=== PATIENT | female | born 1985 | race Caucasian/White ===

== ENCOUNTER 2022-11-11 07:30 | Emergency (ER) | payer OTHER ==
[~2022-11-11] VITALS: Ht 170.2 cm; Wt 60.0 kg
[2022-11-11 08:14] VITALS: BP 150/108
--- NOTE | 2022-11-11 08:19 | NUR ---
MD is aware of patients high blood pressure, no new orders at this time.
[2022-11-11] MEDS ORDERED: ibuprofen tablet 400 MG TABLET PO ONE (09:05)
[2022-11-11] MEDS ORDERED: acetaminophen 325mg tablet PO ONE (09:05)
== END 2022-11-11 09:41 | disposition home or self-care (01) ==
LOC: ER 07:31
DX: S13.4XXA Sprain of ligaments of cervical spine, initial encounter (principal); Z88.0 Allergy status to penicillin; V87.7XXA Person injured in collision between other specified motor vehicles (traffic), initial encounter; Y93.89 Activity, other specified; Y92.89 Other specified places as the place of occurrence of the external cause; Y99.8 Other external cause status
CPT/HCPCS: 70450; 70486; 72125; 99284

== ENCOUNTER 2022-11-15 12:06 | Emergency (ER) | payer OTHER ==
[~2022-11-15] VITALS: Ht 170.2 cm; Wt 58.3 kg
[2022-11-15 12:27] VITALS: BP 174/116
[2022-11-15] MEDS ORDERED: ketorolac trometh. 30mg/ml inj. IM ONE (14:20)
[2022-11-15] MEDS ORDERED: CYCL-1 PO (14:29)
== END 2022-11-15 14:49 | disposition home or self-care (01) ==
LOC: ER 12:07
DX: S16.1XXA Strain of muscle, fascia and tendon at neck level, initial encounter (principal); Z88.0 Allergy status to penicillin; Z79.899 Other long term (current) drug therapy; V89.2XXA Person injured in unspecified motor-vehicle accident, traffic, initial encounter; Y93.89 Activity, other specified; Y92.89 Other specified places as the place of occurrence of the external cause; Y99.8 Other external cause status
CPT/HCPCS: 96372; 99283; J1885